=== PATIENT | male | born 2000 | race Caucasian/White ===

== ENCOUNTER 2023-05-19 20:11 | Emergency (ER) | payer BC ==
[~2023-05-19] VITALS: Ht 177.8 cm; Wt 69.0 kg
[2023-05-19 20:14] VITALS: BP 126/87; PULSE 98; RESP 16; TEMP 98.5; O2SAT 99
[2023-05-19] MEDS ORDERED: LIDOCAINE HCL/PF 1% 10 MG/ML 5ML VIAL INFIL ONE (20:45)
[2023-05-19] MEDS ORDERED: BACITRACIN ZINC OINT UDPKT TOP ONE (20:45)
== END 2023-05-19 22:02 | disposition home or self-care (01) ==
LOC: ER 20:55
DX: S01.111A Laceration without foreign body of right eyelid and periocular area, initial encounter (principal); X58.XXXA Exposure to other specified factors, initial encounter; Y93.89 Activity, other specified; Y92.89 Other specified places as the place of occurrence of the external cause; Y99.8 Other external cause status
CPT/HCPCS: 99283; 12013; J3490